=== PATIENT | female | born 1935 | race African-American/Black ===

== ENCOUNTER 2021-04-15 12:50 | Emergency (ER) | payer MEDICARE, MEDICAID ==
[~2021-04-15] VITALS: Ht 157.5 cm; Wt 69.0 kg
[2021-04-15 17:16] LABS: HEMATOCRIT. 31.5 % (36.0-48.0); HEMOGLOBIN. 10.6 g/dL (12.0-16.0); MEAN CORPUSCULAR HEMOGLOBIN 29.2 pg (28.0-32.0); MEAN CORPUSCULAR VOLUME 86.6 fL (81.0-99.0); MEAN PLATELET VOLUME 8.7 fl (7.4-10.4); PLATELET 142 x1000/uL (130-400); RED BLOOD CELL COUNT 3.63 mill/uL (4.2-5.4); RED CELL DISTRIBUTION WIDTH 16.8 % (11.6-14.6)
[2021-04-15 17:39] LABS: PROTHROMBIN TIME 38.7 sec (9.6-11.0)
[2021-04-15 18:35] LABS: PLATELET ESTIMATE NORMAL
[2021-04-15] MEDS ORDERED: POTASSIUM CHLORIDE 20MEQ TABLET SR PO ONE (19:15)
[2021-04-15 20:02] VITALS: BP 134/58
== END 2021-04-15 20:02 | disposition home or self-care (01) ==
LOC: ER 12:50
DX: R04.0 Epistaxis (principal); I10 Essential (primary) hypertension; E87.6 Hypokalemia; D68.8 Other specified coagulation defects
CPT/HCPCS: 36415; 80048; 85025; 86850; 86900; 99283